=== PATIENT | female | born 1945 | race Caucasian/White ===

== ENCOUNTER 2024-05-21 16:59 | Outpatient (CLI) | payer MEDICARE, SELFPAY ==
--- NOTE | ~2024-05-21 | XR_ITS ---
CHEST RADIOGRAPH, PA AND LATERAL CLINICAL HISTORY: Cough . COMPARISON: None TECHNIQUE: PA and lateral views of the chest. FINDINGS The cardiomediastinal silhouette is unremarkable. The lungs are clear. Visualized osseous structures and soft tissues are unremarkable. IMPRESSION: No focal infiltrate or effusion. Reviewed, dictated and finalized at location A. ER INSTALLATION MECHANIC
--- OUTSIDE RECORDS SUMMARY | 2024-05-21 17:03 | XMS_ITS | Referral Summary ---
Author Organization [facility] Address [address] [place] [address] Care Team Providers Care Text Transcriber Name Role Phone Unavailable Primary Care Provider Unavailabl e Source Comments [facility],non-owned Affiliates and Associated Physician Practices is amultiple site organization consisting of ambulatory clinics and hospital sitesin [place], [place], [place] and [place]. This disclosure is being madepursuant to the Care Everywhere program and may not contain all information available regarding this patient. Last updated 18.[facility] Allergies No known active allergies Social History Tobacco Use Types Packs/Day Years Used Date Smoking Tobacco: Never Assessed Sex and Gender Information Value Date Recorded Sex Assigned at Not on file Gender Identity Not on file Sexual Orientation Not on file Plan of Treatment Not on file
--- OUTSIDE RECORDS SUMMARY | 2024-05-21 17:03 | XMS_ITS | Referral Summary ---
Author Organization [facility] Address [facility] [place] [address] Care Team Providers Care Instructional Systems Specialist Name Role Phone Juanpablo Boyd MD Primary Care Provider Allergies Active Allergy Reactions Criticality Noted Date Comments Penicillins Rash Medium 02/27/2022 Medications PARoxetine (PAXIL) 20 mg tablet 01/03/2022 Active omeprazole (PriLOSEC) 40 mg capsule 12/07/2021 Active calcium carbonate-vitam in D3 (CALTRATE 600 + D) 1500 mg (600 mg elemental) -400 units per tablet every 12 hours Active biotin 10,000 mcg capsule biotin 10,000 mcg capsule Take by oral route. Active estradioL (ESTRACE) 1 mg tablet Estrace 1 mg tablet Take 1 tablet every day by oral route. 05/18/2013 Active oxyBUTYnin XL (DITROPAN-XL) 10 mg 24 hr tablet Take 1 tablet (10 mg total) by mouth daily 12/27/2022 Active Active Problems Problem Noted Date Diagnosed Date Abnormal mammogram 02/27/2022 Social History Tobacco Use Types Packs/Day Years Used Date Smoking Tobacco: Never Smokeless Tobacco: Never Tobacco Cessation:Counseling Given: Not Answered Personal Safety Answer Date Recorded Getting School Help Needed Not on file 06/21 Comments Unknown Sex and Gender Information Value Date Recorded Sex Assigned at Not on file Legal Sex Female 2:56 PM CDT Gender Identity Not on file Sexual Orientation Not on file Last Filed Vital Signs Vital Sign Reading Time Taken Comments Blood Pressure - - Pulse - - Temperature - - Respiratory Rate - - Oxygen Saturation - - Inhaled Oxygen Concentration - - Weight 77.6 kg (171 lb 1.2 oz) 03/07/2023 8:22 A M HAND UPPER AND BOTTOM LACER Height 170.2 cm (5' 7.01 ) 03/07/2023 8:22 AM CS T Body Mass Index 26.79 03/07/2023 8:22 AM HAND UPPER AND BOTTOM LACER Plan of Treatment Not on file Procedures Procedure Name Priority Date/Time Associated Diagnosis Comments SCREENING MAMMOGRAM BILATERAL W DAVY Schedule Routine, Read Routine (OP Routine) 03/07/2023 8:58 AM HAND UPPER AND BOTTOM LACER Mass of upper inner quadrant of left breast Abnormal mammogram Granulomatous mastitis, left breast from Last 3 Months or Most Recently Relevant to Health Maintenance Results * Screening Mammogram Bilateral W Davy (03/07/2023 8:58 AM HAND UPPER AND BOTTOM LACER) Anatomical Region Laterality Modality Breast Bilateral Mammography Narrative 03/10/2023 9:40 AM HAND UPPER AND BOTTOM LACER Mammogram Technique: Bilateral Digital Breast Tomosynthesis, Bilateral C-view 2D Screening mammogram. ??Views obtained: ??bilateral craniocaudal and bilateral mediolateral oblique. ??Computer Aided Detection was performed. Mammogram Findings: The present examination has been compared to prior imaging studies performed at [facility] on 02/27/2022 and 09/27/2022. The breasts are extremely dense, which lowers the sensitivity of mammography. There are calcifications in both breasts. Impression: Calcifications in both breasts are benign. Annual screening mammography is recommended. OVERALL FINAL ASSESSMENT: BI-RADS CATEGORY 2: ??Benign. Procedure Note Namrata Pat MD - 03/10/2023 Mammogram Technique: Bilateral Digital Breast Tomosynthesis, Bilateral C-view 2D Screening mammogram. Views obtained: bilateral craniocaudal and bilateral mediolateral oblique. Computer Aided Detection was performed. Mammogram Findings: The present examination has been compared to prior imaging studies performed at [facility] on 02/27/2022 and 09/27/2022. The breasts are extremely dense, which lowers the sensitivity of mammography. There are calcifications in both breasts. Impression: Calcifications in both breasts are benign. Annual screening mammography is recommended. OVERALL FINAL ASSESSMENT: BI-RADS CATEGORY 2: Benign. Vicky Naralouis Solano ICE GUARD INSPECTOR IMG MAMMO PROCEDURES Final Result from Last 3 Months or Most Recently Relevant to Health Maintenance [place] [address] MED[employer]ARE SOLUT[employer] Care Teams Instructional Systems Specialist Relationship Specialty Start Date End Date Juanpablo Boyd MD [address] [facility] [address] [place] [address] PCP - General Internal Medicine 01/03/22
--- OUTSIDE RECORDS SUMMARY | 2024-05-21 17:03 | XMS_ITS | Clinical Summary ---
Author Organization [facility] Address [address] [place] [address] Care Team Providers Care Crutcher Helper Name Role Phone Unavailable Primary Care Provider Unavailabl e Source Comments [facility],non-owned Affiliates and Associated Physician Practices is amultiple site organization consisting of ambulatory clinics and hospital sitesin [place], [place], [place] and [place]. This disclosure is being madepursuant to the Care Everywhere program and may not contain all information available regarding this patient. Last updated 18.[facility] [email or web address] Allergies No known active allergies Social History Tobacco Use Types Packs/Day Years Used Date Smoking Tobacco: Never Assessed Sex and Gender Information Value Date Recorded Sex Assigned at Not on file Gender Identity Not on file Sexual Orientation Not on file Plan of Treatment Health Maintenance Due Date Last Done Comments BONE DENSITY TESTING 1945 HEPATITIS C SCREENING 02/12/1965 DTAP/TDAP/TD VACCINES (1 - Tdap) 1966 PNEUMOCOCCAL VACCINE 50+ (1 of 1 - PCV) 1997 ZOSTER VACCINE (1 of 2) 1997 Respiratory Syncytial Virus (RSV) Vaccine Pt: or over 60 yrs (1 - 1-dose 75+ series) 2022 COVID-19 VACCINE ( - 2023-2 5 season) 2023 03/12/2021, 07/10/2020, 06/08/2020 INFLUENZA VACCINE (#1) 2023 DEPRESSION SCREENING 04/21/2024 HEPATITIS B VACCINE Aged Out No longe r eligible based on patient's age to complete this topic HIB VACCINE Aged Out No longer eligi ble based on patient's age to complete this topic HPV VACCINE Aged Out No longer eligi ble based on patient's age to complete this topic MENINGOCOCCAL (Group B) VACCINE Aged Out No longer eligible b ased on patient's age to complete this topic MENINGOCOCCAL VACCINE Aged Out No rupal frances eligible based on patient's age to complete this topic
--- OUTSIDE RECORDS SUMMARY | 2024-05-21 17:03 | XMS_ITS | Encounter Summary ---
Author Organization [facility] Healthcare Address [address] [place] [address] Care Team Providers Care Screw Machine Setter Name Role Phone Unavailable Primary Care Provider Unavailabl e Reason for Visit * Diagnostic Imaging (Routine) - Closed Specialty Diagnoses / Procedures Referred By Contac t Referred To Contact Procedures Breast Imaging Screening Outside Reference Aft, Gaviota Kennedy MD PhD [address] [place] [id number] Phone: tel: fax: Referral ID Status Reason Start Date Expiration Date Visits Re quested Visits Authorized [id number] Closed 01/29/2022 02/28/2023 1 1 Encounter Details Date Type Department Care Team (Late st Contact Info) Description 02/23/2019 Hospital Encounter [facility] [address] [place] [address] [phone] Social History Tobacco Use Types Packs/Day Years Used Date Smoking Tobacco: Never Smokeless Tobacco: Never Personal Safety Answer Date Recorded Getting School Help Needed Not on file 06/21 Comments Unknown Sex and Gender Information Value Date Recorded Sex Assigned at Not on file Legal Sex Female 2:56 PM CDT Gender Identity Not on file Sexual Orientation Not on file documented as of this encounter Plan of Treatment Not on file documented as of this encounter Procedures Procedure Name Priority Date/Time Associated Diagnosis Comments BREAST IMAGING MG SCREENING OUTSIDE REFERENCE Routine 02/23/2019 12:00 AM AURICULOTHERAPIST documented in this encounter Results * Breast Imaging Screening Outside Reference (02/23/2019 12:00 AM AURICULOTHERAPIST) Impressions [facility]MO[facility] - 01/29/2022 10:10 AM CDT These images are for Reference purposes only and have not been reviewed by [facility] Radiology. ??There will be no report generated by a [facility] Radiologist. Narrative [facility] - 01/29/2022 10:10 AM CDT EXAMINATION: ??Images For Reference Purposes Only us Gaviota Wilson MD PhD IMG MAMMO PROCEDURES Final Result [facility] documented in this encounter Visit Diagnoses Not on filedocumented in this encounter
--- OUTSIDE RECORDS SUMMARY | 2024-05-21 17:03 | XMS_ITS | Patient Health Summary ---
Author Organization [facility] Address [address] [place] [address] Care Team Providers Care Greeter Name Role Phone Unavailable Primary Care Provider Unavailabl e Note from [facility],non-owned Affiliates and Associated Physician Practices is amultiple site organization consisting of ambulatory clinics and hospital sitesin [place], [place], [place] and [place]. This disclosure is being madepursuant to the Care Everywhere program and may not contain all information available regarding this patient. Last updated 18.[facility] Allergies No known active allergies Social History Tobacco Use Types Packs/Day Years Used Date Smoking Tobacco: Never Assessed Sex and Gender Information Value Date Recorded Sex Assigned at Not on file Gender Identity Not on file Sexual Orientation Not on file
--- OUTSIDE RECORDS SUMMARY | 2024-05-21 17:03 | XMS_ITS | Encounter Summary ---
Author Organization [facility] Healthcare Address [address] [place] [address] Care Team Providers Care Director Enterprise Sales Name Role Phone Unavailable Primary Care Provider Unavailabl e Reason for Visit * Diagnostic Imaging (Routine) - Closed Specialty Diagnoses / Procedures Referred By Contac t Referred To Contact Procedures Breast Imaging US Outside Reference Aft, Gaviota Kennedy [place] PhD [address] [place] [id number] Phone: tel: fax: Referral ID Status Reason Start Date Expiration Date Visits Re quested Visits Authorized [id number] Closed 01/29/2022 02/28/2023 1 1 Encounter Details Date Type Department Care Team (Late st Contact Info) Description 03/15/2019 Hospital Encounter [facility] Radiology [facility] [address] [place] [address] [phone] Social History Tobacco Use Types Packs/Day Years [...] Priority Date/Time Associated Diagnosis Comments BREAST IMAGING US OUTSIDE REFERENCE Routine 03/15/2019 12:00 AM FACTORY SUPERVISOR documented in this encounter Results * Breast Imaging US Outside Reference (03/15/2019 12:00 AM FACTORY SUPERVISOR) Impressions [facility] - 01/29/2022 10:04 AM CDT These images are for Reference purposes only and have not been reviewed by [facility] Radiology. ??There will be no report generated by a [facility] Radiologist. Narrative [facility] - 01/29/2022 10:04 AM CDT EXAMINATION: ??Images For Reference Purposes Only us Gaviota Wilson MD PhD IMG MAMMO PROCEDURES Final Result [facility] documented in this encounter Visit Diagnoses Not on filedocumented in this encounter
--- OUTSIDE RECORDS SUMMARY | 2024-05-21 17:04 | XMS_ITS | Clinical Summary ---
Author Organization [facility] Address [address] [place] [id number] Care Team Providers Care Machine Specialist Name Role Phone Juanpablo Boyd MD [...] Noted Date Diagnosed Date Abnormal mammogram 02/27/2022 Family History Medical History Relation Name Comments Bladder Cancer Brother Relation Name Status Comments Brother Social History Tobacco Use Types Packs/Day Years [...] on file Sexual Orientation Not on file Obstetrics History Last Filed Vital Signs Vital Sign Reading Time Taken Comments Blood Pressure - - Pulse - - Temperature - - Respiratory Rate - - Oxygen Saturation - - Inhaled Oxygen Concentration - - Weight 77.6 kg (171 lb 1.2 oz) 03/07/2023 8:22 A M LOCOMOTIVE LUBRICATING SYSTEMS CLERK Height 170.2 cm (5' 7.01 ) 03/07/2023 8:22 AM CS T Body Mass Index 26.79 03/07/2023 8:22 AM LOCOMOTIVE LUBRICATING SYSTEMS CLERK Plan of Treatment Health Maintenance Due Date Last Done Comments Depression Screening 1945 Fall Risk Assessment 1945 Hepatitis C Screening 1945 Osteoporosis Screening-Bone Density Scan 1945 DTaP/Tdap/Td Vaccine (1 - Tdap) 1958 Hepatitis B Screening 1965 Zoster Vaccine (1 of 2) 1997 Pneumococcal vaccine 65+ (1 of 1 - PCV) 02/18/2012 Well Visit 65+ 02/18/2012 Covid-19 Vaccine (5 - 2023-2 5 season) 2023 01/23/2022, 03/12/2021, 07/10/2020, Additional history exists Influenza Vaccine (#1) 2023 , 01/27/2019, 01/19/2015 Breast Cancer Screening-Mammogram Discontinued 023, 02/27/2022 Procedures Procedure Name Priority Date/Time Associated Diagnosis Comments SCREENING MAMMOGRAM BILATERAL W DAVY Schedule Routine, Read Routine (OP Routine) 03/07/2023 8:58 AM LOCOMOTIVE LUBRICATING SYSTEMS CLERK Mass of upper inner quadrant of left breast Abnormal mammogram Granulomatous mastitis, left breast from Last 3 Months or Most Recently Relevant to Health Maintenance Results * Screening Mammogram Bilateral W Davy (03/07/2023 8:58 AM LOCOMOTIVE LUBRICATING SYSTEMS CLERK) Anatomical Region Laterality Modality Breast Bilateral Mammography Narrative 03/10/2023 9:40 AM LOCOMOTIVE LUBRICATING SYSTEMS CLERK Mammogram Technique: Bilateral Digital Breast Tomosynthesis, Bilateral C-view 2D Screening mammogram. ??Views obtained: ??bilateral craniocaudal and bilateral mediolateral oblique. ??Computer Aided Detection was performed. Mammogram Findings: The present examination has been compared to prior imaging studies performed at [facility] on 02/27/2022 and 09/27/2022. The breasts are [...] compared to prior imaging studies performed at [facility] on 02/27/2022 and 09/27/2022. The breasts are extremely dense, which lowers the sensitivity of mammography. There are calcifications in both breasts. Impression: Calcifications in both breasts are benign. Annual screening mammography is recommended. OVERALL FINAL ASSESSMENT: BI-RADS CATEGORY 2: Benign. Vicky Solano NP IMG MAMMO PROCEDURES Final Result from Last 3 Months or Most Recently Relevant to Health Maintenance Insurance MEDICARE SOLUTIONS Care Teams Machine Specialist Relationship Specialty Start Date End Date Juanpablo Boyd MD [address] [address] PCP - General Internal Medicine 01/03/22
--- OUTSIDE RECORDS SUMMARY | 2024-05-21 17:04 | XMS_ITS | Data Portability ---
Author Organization BAL Arlette HAMMOND Address [address] [place] [address] Care Team Providers Care Director Regulatory Agency Name Role Phone DAXAKATIE JONES Online Retailer Assessment Encounter Date Assessment Date Assessment LastModified by Organization Details LastModified Time 07/24/2021 07/24/2021 Stormy GRUBER Not available 07/24/2021 12:02:35 Plan of Treatment Reminders Order Date Submit Date Provider Last Modified By Organization Details Last Modified Time Details Appointments None recorded . Lab culture, urine 2018 019 MELISSA LABREJIRP, [address], [address], [place], [address], 9 20:07:52 urinalys is, dipstick 2018 019 In-Office Order, Internal Use Only DO Not Attach Compendium DO Not Attach Compendium, Do Not Delete/merge, [id number] 13:13:07 patholog y study 2021 022 MELISSA LABREJIRP, [address], [address], [place], [address], 20:08:35 vaginal pathogen s panel, SLAVA+prob e, vaginal fluid 2023 024 MELISSA LIANGRP, [address], [address], [place], [address], 4 03:11:51 Referral None recorded . Procedures None recorded . Surgeries None recorded . Imaging MAMMO, screenin g, bilatera l 2018 019 [facility] ([facility]), [address], [place], [address], 9 17:04:36 MAMMO, screenin g, digital, bilatera l - pt has been seen in the last 2 years by [facility] for mammogra ms 2023 024 [facility], [address], [place] [address], [place], [address], 5 12:58:59 Medication Orders Macrobid 100 mg capsule 2018 019 [facility], [address] [place], [address], 4 09:13:53 fluconaz ole 150 mg tablet 2018 019 [facility], [address] [place], [address], 4 09:13:38 nystatin 100,000 unit/gra m topical cream 2018 019 [facility], [address] [place], [address], 4 09:13:57 Calcium with Vitamin D 600 mg-10 mcg (400 unit) tablet 2018 019 [facility], [address] [place], [address], 4 09:13:18 Diflucan 150 mg tablet 2021 022 [facility] #[id number], [address], [place], [address], 4 09:13:38 nystatin 100,000 unit/gra m topical cream 2021 022 [id number], [address], [place], [address], 4 09:13:57 vaginal lubrican t inserts 2023 024 [id number], [address], [place], [address], 4 10:53:59 fluconaz ole 150 mg tablet 2023 024 [id number], [address], [place], [address], 10:53:56 Patient TargetsNo targets recorded. Patient Instructions Encounter Date Encounter Id Patient Instructions Last Modified By Organization Details Last Modified Time 01/05/2019 [id number] lichen sclerosus : care instructions Not available 01/05/2019 16:11:23 04/06/2019 [id number] atrophic vaginitis: care instructions Not available 04/06/2019 12:56:44 lichen sclerosus : care instructions Not available 04/06/2019 12:54:16 candidiasis: car e instructions Not available 04/06/2019 12:52:44 Urge Incontinence: Care Instructions Not available 04/06/2019 12:52:44 02/26/2024 [id number] On the date of this encounter, I was immediately available to assist the resident/fellow in the care of the patient, and have reviewed and agree with the resident? s findings and plan of care. ~MD Melo [email or web address] Not available 02/26/2024 09:43:15 Reason for Referral None Reported. Results Created Date Observation Date Name Description Value Unit Range Abnormal Flag Note LastModifiedBy Organization Detail LastModifiedTime 01/06/2001/07/2019 cultu re, urine urine culture, routine FINAL REPORT abnormal Not Available [facility] ([facility]) [address], [place], [place], [address], 01/07/2019 20:07:52 01/06/2001/07/2019 cultu re, urine result 1 KLEBSI ZEB PNEUMO NIAE abnormal Great er than 100,0 00 colon y formi ng units per mL Cefaz nataliya <=4 ug/mL Cefaz nataliya with an JOSLYN <=16 predi cts susce ptibi lity to the oral agent s cefac shelley, cefdi ricardo, cefpo doxim e, cefpr ozil, cefur oxime , cepha lexin , and lorac arbef when used for thera py of uncom plica dov urina ry tract infec tions due to E. coli, Klebs iella pneum oniae , and Prote us mirab ilis. Not Available [facility] ([facility]) [address], [place], [place], [address], 01/07/2019 20:07:52 01/06/2001/07/2019 cultu re, urine antimicrobia l susceptibili ty COMMEN T S = Susce ptibl e; I = Inter media te; R = Resis tant P = Posit neema; N = Negat neema MICS are expre ssed in micro grams per mL Antib iotic RSLT# 1 RSLT# 2 RSLT# 3 RSLT# 4 Amoxi cilli n/Cla vulan ic Acid S Ampic illin R Cefep carleen S Ceftr iaxon e S Cefur oxime S Cipro floxa tavo S Ertap enem S Genta micin S Imipe nem S Levof loxac in S Merop enem S Nitro furan toin S Piper acill in/Ta zobac pabon S Tetra cycli ne R Tobra mycin S Trime thopr im/Muñoz lfa S Not Available [facility] ([facility]) [address], [place], [place], [address], 01/07/2019 20:07:52 04/06/2004/06/2019 urina lysis , dipst ick Leukocytes Small Not Available In-Offi ce Order Internal Use Only DO Not Attach Compendium DO Not Attach Compendium, Do Not Delete/merge, [id number] 04/06/2019 10:11:15 04/06/20 19 04/06/2019 urina lysis , dipst ick Nitrite negati ve Not Available In-Office Order Internal Use Only DO Not Attach Compendium DO Not Attach Compendium, Do Not Delete/merge, [id number] 04/06/2019 10:11:15 04/06/20 19 04/06/2019 urina lysis , dipst ick Urobilinogen .2 Not Available In-Of fice Order Internal Use Only DO Not Attach Compendium DO Not Attach Compendium, Do Not Delete/merge, [id number] 04/06/2019 10:11:15 04/06/20 19 04/06/2019 urina lysis , dipst ick Protein Negati ve Not Available In-Office Order Internal Use Only DO Not Attach Compendium DO Not Attach Compendium, Do Not Delete/merge, [id number] 04/06/2019 10:11:15 04/06/20 19 04/06/2019 urina lysis , dipst ick pH 5.5 Not Available In-Office Order Internal Use Only DO Not Attach Compendium DO Not Attach Compendium, Do Not Delete/merge, [id number] 04/06/2019 10:11:15 04/06/20 19 04/06/2019 urina lysis , dipst ick Blood Non-He molyze d: Trace Not Available In-Office Order Internal Use Only DO Not Attach Compendium DO Not Attach Compendium, Do Not Delete/merge, [id number] 04/06/2019 10:11:15 04/06/20 19 04/06/2019 urina lysis , dipst ick Specific [place] 1.030 Not Available In-Off ice Order Internal Use Only DO Not Attach Compendium DO Not Attach Compendium, Do Not Delete/merge, [id number] 04/06/2019 10:11:15 04/06/20 19 04/06/2019 urina lysis , dipst ick Ketone Negati ve Not Available In-Office Order Internal Use Only DO Not Attach Compendium DO Not Attach Compendium, Do Not Delete/merge, [id number] 04/06/2019 10:11:15 04/06/20 19 04/06/2019 urina lysis , dipst ick Bilirubin Negati ve Not Available In-Office Order Internal Use Only DO Not Attach Compendium DO Not Attach Compendium, Do Not Delete/merge, [id number] 04/06/2019 10:11:15 04/06/20 19 04/06/2019 urina lysis , dipst ick Glucose Negati ve Not Available In-Office Order Internal Use Only DO Not Attach Compendium DO Not Attach Compendium, Do Not Delete/merge, [id number] 04/06/2019 10:11:15 08/25/19 22 08/29/2021 PATHO LOGY IVETT crowell Mater ial submi tted: . vulva - VULVA R BIOPS Y Not Available [facility] ([facility]) [address] [place], [address], 08/29/2021 20:08:35 08/25/19 22 08/29/2021 PATHO LOGY IVETT crowell Diagn osis: VULVA R BIOPS Y: CHRON IC VULVI TIS WITH ULCER , NONSP ECIFI C. NO FUNGA L ORGAN ISMS ARE SEEN IN A PAS STAIN FOR FUNGI (CONT ROLS STAIN ED APPRO RAMY WILDER). JDK 08/29 1811 Local Not Available [facility] ([facility]) [address] [place], [address], 08/29/2021 20:08:35 08/25/19 22 08/29/2021 PATHO LOGY REPOR T . Commen t Elect carly walls delroy d: . Gorge montano MD, Patho logis t Not Available [facility] ([facility]) [address], [place], [place], [address], 08/29/2021 20:08:35 08/25/19 22 08/29/2021 PATHO LOGY REPOR T . Commen t Gross descr iptio n: . 1 Conta iner, forma sukh-f illed , label ed with patie nt ident ifica tion. VULVA R BIOPS Y: RECEI NANDO ARE 2 FRAGM ENTS OF ROSAS SOFT TISSU E MEASU RING 0.2 X 0.1 X 0.1 CM AND 0.3 X 0.2 X 0.1 CM. IT IS FILTE RED AND SUBMI TTED IN TOTO IN CASSE TTE A1. MCL/M CL 08/27 0604 Local Not Available [facility] ([facility]) [address], [place], [place], [address], 08/29/2021 20:08:35 08/25/19 22 08/29/2021 PATHO LOGY REPOR T . Commen t Patho logis t provi ded ICD-1 0: N76.3 Not Available [facility] ([facility]) [address], [place], [place], [address], 08/29/2021 20:08:35 08/25/19 22 08/29/2021 PATHO LOGY REPOR T . Commen t CPT . 03391 1, 24002 1 Not Available [facility] ([facility]) [address], [place], [place], [address], 08/29/2021 20:08:35 02/26/20 24 02/27/2024 NUSWA B VAGIN ITIS PLUS (VG+) atopobium vaginae LOW - 0 score Not Available [facility] ([facility]) [address], [place], [place], [address], 02/28/2024 03:11:50 02/26/20 24 02/27/2024 NUSWA B VAGIN ITIS PLUS (VG+) bvab 2 LOW - 0 score Not Available [facility] ([facility]) [address], [place], [place], [address], 02/28/2024 03:11:50 02/26/20 24 02/27/2024 NUSWA B VAGIN ITIS PLUS (VG+) megasphaera 1 LOW - 0 score Calcu late total score by celina petit the 3 indiv idual bacte rial vagin osis (BV) marke r score s toget her. Total score is inter prete d as follo ws: Total score 0-1: Indic ates the absen ce of BV. Total score 2: Indet ermin ate for BV. Addit ional clini efra data shoul d be evalu ated to estab jonathan a diagn osis. Total score 3-6: Indic ates the prese nce of BV. Not Available [facility] ([facility]) [address], [place], [place], [address], 02/28/2024 03:11:50 02/26/20 24 02/27/2024 NUSWA B VAGIN ITIS PLUS (VG+) arleth albicans, SLAVA NEGATI VE negati ve Not Available [facility] ([facility]) [address] [place], [address], 02/28/2024 03:11:50 02/26/20 24 02/27/2024 NUA B VAGIN ITIS PLUS (VG+) arleth glabrata, SLAVA NEGATI VE negati ve Not Available [facility] ([facility]) [address] [place], [address], 02/28/2024 03:11:50 02/26/20 24 02/27/2024 NUSWA B VAGIN ITIS PLUS (VG+) trich vag by SLAVA NEGATI VE negati ve Not Available [facility] ([facility]) [address], [place], [place], [address], 02/28/2024 03:11:50 02/26/20 24 02/27/2024 NUSWA B VAGIN ITIS PLUS (VG+) chlamydia trachomatis, SLAVA NEGATI VE negati ve Not Available [facility] ([facility]) [address], [place], [place], [address], 02/28/2024 03:11:50 02/26/20 24 02/27/2024 NUSWA B VAGIN ITIS PLUS (VG+) neisseria gonorrhoeae, SLAVA NEGATI VE negati ve Not Available [facility] ([facility]) [address], [place], [place], [address], 02/28/2024 03:11:50 03/08/20 19 02/23/2019 MAMMO , screlouis beang, bilat eral No observ ation record ed. [address] (Imaging) [address] [place], [address], 04/06/2019 10:25:56 03/15/20 19 03/15/2019 US, melba crowell, bilat eral No observ ation record ed. [address] (Imaging) [address] [place], [address], 04/06/2019 10:25:56 12/15/19 21 12/14/2020 MAMMO , screlouis beang, bilat eral No observ ation record ed. [address] [place], [address], 07/24/2021 09:50:25 05/14/19 25 05/14/2024 MAMMO , scree jason, digit al, bilat eral No observ ation record ed. MELIS[facility] [address], [place], [address], 05/14/2024 17:35:37 Result Notes Documentation Provider Name and Address Organization Details Recorded Time Mammo, Screening, Digital, Bilateral : Mammogram Mammo, Screening, Digital, Bilateral : Normal FRANKIE YOO MD Attn: Accounting,[address] [facility], [place], [address], [facility] 05/14/2024 13:18:52 Problems Name Problem SNOMED Code Status Onset Date Resolution Date Notes Provider Name and Address Organization Details Recorded Time Genital lichen sclerosus 860688406 Active 019 Not Available [facility] 2 00:02:34 Atrophic vaginitis 10318593 Active Not Available [facility] 2 00:02:34 Problem Notes None recorded. Procedures Surgical History Date Name Laterality Status Provider Name and Address Organization Details Recorded Time 08/25/19 22 Vulvar Biopsy completed JELLY WHITTINGTON Attn: Accounting,[address] [facility], [place], [address], [facility] 08/31/2021 15:17:26 12/15/19 21 Date of Last Mammogram completed Ela Bonilla [facility] 02/26/2024 09:14:25 Total hysterectomy completed Alex Lr MA [facility] 01/05/2019 15:13:22 excision of bunion completed Alex Lr MA [facility] 01/05/2019 15:13:29 Appendectomy completed Alex Lr MA [facility] 01/05/2019 15:13:35 surgical procedure on orbit completed Alex Lr MA [facility] 01/05/2019 15:13:49 Unlisted px accessory sinus completed Alex Lr MA [facility] 01/05/2019 15:14:09 Imaging Results Imaging Date Name Status LastModified by [facility] Details LastModified Time 02/23/2019 MAMMO, screening, bilateral completed [email or web address] (Imaging) [address] [place], [address], 04/06/2019 10:25:56 03/15/2019 US, breast, bilateral completed [email or web address] (Imaging) [address] [place], [address], 04/06/2019 10:25:56 12/14/2020 MAMMO, screening, bilateral completed [facility] [address] [place], [address], 07/24/2021 09:50:25 05/14/2024 MAMMO, screening, digital, bilateral completed [facility] [address], [place], [address], 05/14/2024 17:35:37 Procedure Notes None recorded. Medical Equipment None Reported. Allergies No known drug allergies Medications Name Sig Start Date Stop Date Status Note LastModified by Organization Details LastModified Time doxycycline hyclate 100 mg capsule TAKE 1 CAPSULE BY MOUTH TWICE A DAY active Not Available Not Available No t Available oxybutynin chloride ER 10 mg tablet,exte nded release 24 hr TAKE 1 TABLET BY MOUTH EVERY DAY active Not Available Not Available No t Available azithromyci n 250 mg tablet TAKE 2 TABLETS BY MOUTH TODAY, THEN TAKE 1 TABLET DAILY FOR 4 DAYS 07/24 completed Not Available Not Available Not Available fluconazole 150 mg tablet TAKE 1 TABLET BY MOUTH FOR 1 DAY active Not Available Not Available No t Available meclizine 12.5 mg tablet TAKE 1 TABLET 3 TIMES A DAY BY ORAL ROUTE. active Not Available Not Available No t Available sulfamethox azole 800 mg-trimetho prim 160 mg tablet TAKE 1 TABLET BY MOUTH TWICE A DAY active Not Available Not Available No t Available omeprazole 40 mg capsule,del ayed release active Not Available Not Available Not Available vaginal lubricant inserts Insert 1 applicato r intravagi bhavani every third day 2023 active Not Available Not Available Not Avai lable baclofen 10 mg tablet TAKE 1 TABLET BY MOUTH FOUR TIMES A DAY active Not Available Not Available No t Available paroxetine 20 mg tablet active Not Available Not Available Not Available biotin 10,000 mcg capsule Take by oral route. 02/25 completed Not Available Not Available Not Available nystatin 100,000 unit/gram topical cream APPLY TO AFFECTED AREA TWICE A DAY 02/25 completed Not Available Not Available Not Available clobetasol 0.05 % topical ointment 08/01 completed Not Available Not Available Not Available levofloxaci n 500 mg tablet TAKE 1 TABLET BY MOUTH EVERY DAY active Not Available Not Available No t Available methylpredn isolone 4 mg tablets in a dose pack TAKE 6 TABLETS ON DAY 1 DIRECTED ON PACKAGE AND DECREASE BY 1 TAB EACH DAY FOR A TOTAL OF 6 DAYS 02/25 completed Not Available Not Available Not Available oxybutynin chloride 5 mg tablet 07/24 completed Not Available Not Available Not Available fluticasone propionate 50 mcg/actuati on nasal spray,suspe nsion active Not Available Not Available Not Available clotrimazol e 1 % topical cream APPLY 1 APPLICATI ON TO THE AFFECTED AREA(S) TWICE DAILY IN THE MORNING AND EVENING 02/25 completed Not Available Not Available Not Available Estrace 0.01% (0.1 mg/gram) vaginal cream Insert 1 g twice a week by vaginal route. 01/05 completed Not Available Not Available Not Available Premarin 0.625 mg/gram vaginal cream 07/24 completed Not Available Not Available Not Available nitrofurant oin monohydrate /macrocryst als 100 mg capsule TAKE 1 CAPSULE BY MOUTH EVERY 12 HOURS 02/25 completed Not Available Not Available Not Available peg 3350-electr olytes 236 gram-22.74 gram-6.74 gram-5.86 gram solution TAKE DIRECTED PER COLON PREP INSTRUCTI ONS EVENING PRIOR TO COLONOSCO PY 07/24 completed Not Available Not Available Not Available Calcium with Vitamin D 600 mg-10 mcg (400 unit) tablet Take 1 tablet twice a day by oral route. 02/25 completed Not Available Not Available Not Available Fluad 65yr up(PF)45 mcg(15 mcgx3)/0.5 mL intramuscul ar syringe 02/25 completed Not Available Not Available Not Available Vitals Date Recorded Body height Body mass index (BMI) Body weight Body temperature Heart rate Oxygen saturation Oxygen saturation in Arterial blood by Pulse oximetry Systolic blood pressure Diastolic blood pressure Provider Name and Address Organization Details Last Updated DateTime 9 170.18 cm 27.3 kg/m2 72035.0 7 g 97.9 [degF] 69 /min 96 % 96 % 104 mm[Hg] 72 mm[Hg] Alex Lr MA [facility] 9 15:05:58 Date Recorded Body height Body mass index (BMI) Body weight Heart rate Body temperature Oxygen saturation Oxygen saturation in Arterial blood by Pulse oximetry Systolic blood pressure Diastolic blood pressure Provider Name and Address Organization Details Last Updated DateTime 9 170.18 cm 26.9 kg/m2 76723.8 9 g 77 /min 97.4 [degF] 97 % 97 % 146 mm[Hg] 72 mm[Hg] Rajni Kan MA [facility] 9 10:14:34 Date Recorded Body height Body mass index (BMI) Body weight Systolic blood pressure Diastolic blood pressure Provider Name and Address Organization Details Last Updated DateTime 07/24/2021 170.18 cm 26.9 kg/m2 30675.89 g 120 mm[Hg] 74 mm[Hg] Rajni Kan MA [facility] 2 09:10:45 Date Recorded Body height Body mass index (BMI) Body weight Systolic blood pressure Diastolic blood pressure Provider Name and Address Organization Details Last Updated DateTime 08/24/2021 170.18 cm 27.3 kg/m2 76165.07 g 120 mm[Hg] 78 mm[Hg] Anna Marie Alan MA [facility] 2 09:45:06 Date Recorded Body height Body mass index (BMI) Body weight Oxygen saturation Oxygen saturation in Arterial blood by Pulse oximetry Heart rate Systolic blood pressure Diastolic blood pressure Provider Name and Address Organization Details Last Updated DateTime 4 170.18 cm 25.5 kg/m2 96976.5 6 g 100 % 100 % 79 /min 122 mm[Hg] 74 mm[Hg] Ela Bonilla MA [facility] 4 09:16:48 Social History Question Answer Notes LastModified by Organizat ion Details LastModified Time Tobacco Smoking Status Never Smoker Alex Lr [facility] 01/05/2019 15:11:28 Do You Have An Advance Directive? No [facility] Information not available 01/05/2019 What Is Your Level Of Alcohol Consumption? None [facility] Information not available 01/05/2019 Is Blood Transfusion Acceptable In An Emergency? Yes Information not available 01/05/2019 What Is Your Level Of Caffeine Consumption? Moderate Information not available 01/05/2019 How Much Tobacco Do You Chew? None Information not available 01/05/2019 Are You Currently Employed? Yes Information not available 01/05/2019 What Type Of Diet Are You Following? REGULAR Information not available 01/05/2019 Which Illicit Or Recreational Drugs Have You Used? Denies Information not available 01/05/2019 Do You Or Have You Ever Used E-cigarettes Or Vape? 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 With Others Information not available 01/05/2019 What Was The Date Of Your Most Recent Tobacco Screening? 02/26/2024 Information not available 02/26/2024 How Many Children Do You Have? 2 Information not available 01/05/2019 Performs Monthly Self-breast Exam? Yes Information not available 01/05/2019 What Is Your Relationship Status? Information not available 01/05/2019 Seat Belts Used Routinely Yes Information not available 01/05/2019 Are You Sexually Active? No Information not available 01/05/2019 Do You Have Smoke And Carbon Monoxide Detectors In Your Home? Yes Information not available 07/24/2021 Do You Or Have You Ever Used Smokeless Tobacco? Never Used Smokeless Tobacco Information not available 01/05/2019 How Much Tobacco Do You Smoke? No Information not available 01/05/2019 General Stress Level Medium Information not available 01/05/2019 Do You Use Any Illicit Or Recreational Drugs? No Information not available 07/24/2021 Do You Use Sunscreen Routinely? Yes Information not available 01/05/2019 Has Tobacco Cessation Counseling Been Provided? Yes Information not available 02/26/2024 On What Date Was Tobacco Cessation Counseling Provided? 02/26/2024 Information not available 02/26/2024 How Many Years Have You Smoked Tobacco? 0 Information not available 01/05/2019 Do You Or Have You Ever Used Any Other Forms Of Tobacco Or Nicotine? No Information not available 02/26/2024 Sex: Unknown Functional Status Question Answer Note LastModified by Organizat ion Details LastModified Time What is your exercise level? Occasional [facility] Information not available 01/05/2019 Mental Status None recorded. Family History Relationship Description Onset Age of this Age Resolved Age Notes LastModified by Organization Details LastModified Time Mother Diabetes mellitus formerly [facility] Not available 01/05 15:10:58 Mother Chronic obstructive pulmonary disease formerly [facility] Not available 01/05 15:11:04 Mother Heart disease formerly [facility] Not available 01/05 15:11:11 Medical History Condition Response Coronary Artery Disease N Other Y High Blood Pressure N Atrial Fibrillation N Kidney or Bladder Problems N Thyroid Problems N GI Problems N Depression N COPD N Blood Clots N Skin Problems N Anemia N Heart Attack ([place]) N Anxiety Disorder N Diabetes N Muscle, Joint, or Bone Problems N Seizures/Epilepsy N Acid Reflux (GERD) N Cancer N Stroke N Asthma N Allergies N High Cholesterol N Hepatitis N Liver Disease N Headaches N Heart Failure N Osteoporosis N Gynecological History Statement/Question Response Menses Monthly N If Post Menopausal, Age at Menopause 37 Age at Menarche 17 Current Control Method Hysterectom y Date of Last Mammogram 12/14/2020 Age at First Child 24 On BCP's at Conception? N Obstetrics History GPAL:G 3 P 3 0 0 3 Type Value Multiple Births 0 Full Term 3 Induced 0 Spontaneous 0 Premature 0 Living 3 Ectopics 0 Total 3 Immunizations Vaccine Type Date Status Note Provider Nam e and Address Organization Details Recorded Time COVID-19, mRNA, LNP-S, PF, 100 mcg/0.5mL dose or 50 mcg/0.25mL dose 06/08/2020 completed ESTRELLA Chavez [place] - [facility] 07/24/2021 09:13:26 COVID-19, mRNA, LNP-S, PF, 100 mcg/0.5mL dose or 50 mcg/0.25mL dose 07/10/2020 completed ESTRELLA Chavez [place] - [facility] 07/24/2021 09:13:56 COVID-19, mRNA, LNP-S, PF, 100 mcg/0.5mL dose or 50 mcg/0.25mL dose 03/12/2021 completed Rajni Kan MA [place], [place] - [facility] 07/24/2021 09:14:34 Past Encounters Encounter ID Performer Location Encounter Start Date Encounter Closed Date Diagnosis/Indication Diagnosis SNOMED-CT Code Diagnosis ICD10 Code Diagnosis Note [id number] JELLY WHITTINGTON ([employer] ADMINISTRATOR) [address] [place] [address] [id number] 01/05/2019 14:46:20 01/06/2019 12:11:04 Genital lichen sclerosus [id number] L90.0 Discontinu e steroid ointment. Wear loose clothing and wash with water and bland soaps. Avoid soaking in hot water. Screening for malignant neoplasm of breast [id number] Z12.31 Gynecologi c examination [id number] Z01.419 Z11.51 Z12.4 Candidal vulvovaginitis 62084689 B37.3 Fairly severe and likely the cause of most of pt's discomfort . Advised pt to d/c other ointments and creams and starting applying nystatin twice daily until swelling and erythemato us rash heal. Keep area clean and dry. Will reassess in 3 months. Acute urin ryley tract infection [id number] N39.0 Advised to increase water intake and avoid sugary drinks. Take abx as prescribed . Will send for culture. Atrophic vaginitis 50641 000 N95.2 Pt reports no difference with use of premarin cream. Ok to discontinu e. [id number] [facility] ([facility] ADMINISTRATOR) [address] [place] [address] [id number] 04/06/2019 09:49:12 04/06/2019 10:45:37 Genital lichen sclerosus [id number] L90.0 Improved. No indication for steroid cream at this time. Wear loose clothing and wash with water and bland soaps. Avoid soaking in hot water. Candidiasis of vulva 108 5006 B37.3 Improving. Continue nystatin cream twice daily. Avoid panty liners. Change underwear after any urine leakage/in continence . Urge incon tinence of urine 45193136 N39.41 On oxybutynin per PCP, not taking regularly due to side effects. Advised pt to discuss discontinu ing/altern atives with PCP. Atrophic vaginitis 87191 000 N95.2 No longer using premarin. 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 Advised pt discontinu e topical Clobetasol as could be making candidal infection worse. Gynecologi c examination [id number] Z01.411 76yo F with h/o hysterecto my and lichen sclerosus presenting with vulvar burning, pruritis, and dryness. Pelvic exam with bilateral labial swelling, maceration , and beefy red patches c/w candidal infection. See below for management .Cervical cancer screening: Pap not indicated todayBreas t cancer screening: Last mammogram 11/2020, wnl. Discussed SBEColonos copy: UTDDiet/ex ercise: Counseled regarding importance of physical activity, healthy diet and appropriat e calcium intake.RTC in 1 month to reassess vulvar symptoms. Atrophic vaginitis 09241 000 N95.2 Pt states she has Premarin at home. Instructed to start Premarin each night x 2 weeks followed by twice weekly maintenanc e. Candidal vulvovaginitis 54828398 B37.3 Fairly severe and likely the cause of most of pt's discomfort . Advised pt to starting applying nystatin twice daily until swelling and erythemato us rash heal. Keep area clean and dry. Avoid prolonged use of panty liners. Will reassess in 1 month. [id number] JELLY WHITTINGTON (COGNOS ADMINISTRATOR) [address] [place] [address] [id number] 0 08/24/2021 09:30:34 09/03/2021 17:40:09 Disorder of vulva 1762309 N90.9 Pt's symptoms and exam findings appear to be persistent since last visit on 07/24/21 after applicatio n of clotrimazo le + Premarin and stopping the clobetasol . I recommende d biopsy for definitive diagnosis and to help guide treatment. I discussed the case with Dr Fallon who agrees with plan for biopsy. Pt is comfortabl e with this plan and the procedure was performed successful ly as described in the procedural note. Biopsies sent to pathology. Will contact pt when results return. [id number] MD Arielle Morris (COGNOS ADMINISTRATOR) [address] [place] [address] [phone] 02/26/2024 08:58:52 03/23/2024 14:02:35 Screening mammography [id number] Z12.31 Pruritus of vagina 25619 003 L29.3 She has a long stating history of pelvic irritation and dyspareuni a over the past 10 to 15 years. She was initially managed as genitourin ryley symptoms of menopause with estrogen cream in 2014. She did not note any improvemen t. Over the years she has had flair ups where she experience d itching. From 2017 to 2018 she used vaginal estrogen cream again with no improvemen t. In 2021 visual exam looked like lichen sclerosus but biopsy in 2021 showed chronic vulvitis with no fungal organisms. She used clobetasol for a period of months but didn't notice any improvemen t. Has not been able to be sexually active with partner in many years. Discussed using vaginal lubricants . Consider oral estrogen supplement ation at follow up. Health Concerns Section Related Observation LastModified by Organization Detai ls LastModified Time None Recorded Concern Status LastModified by Organization Details LastModified Time None Recorded Advance Directives Directive N: Payers Encounter Date Sequence Insurance Name Policy Number Policy Braga Covered Member ID Braga Member ID Guarantor Name 01/05/2019 1 [facility] (MEDICARE REPLACEMENT/A DVANTAGE - HMO) [id number] [facility] [id number] [facility] 04/06/2019 1 [facility] (MEDICARE REPLACEMENT/A DVANTAGE - HMO) [id number] Fannie Miguel Angel 07/24/2021 1 [facility] (MEDICARE REPLACEMENT/A DVANTAGE - HMO) [id number] [id number] Fannie Hayes 08/24/2021 1 [facility] (MEDICARE REPLACEMENT/A DVANTAGE - HMO) [id number] Fannie Michelle [id number] Fannie Michelle 02/26/2024 1 [facility] (MEDICARE REPLACEMENT/A DVANTAGE - HMO) [id number] Fannie Michelle [id number] Fannie Michelle Notes Date Note Type Note Provider Name and Address Organization Details Recorded Time 01/05/2019 text/html Vaginal/Vulvar ProblemReported bypatient.Location:[facility]; vagina Onset/Timing:started: (years ago) Quality:itching; burning; painful; swelling Severity:moderate; worsening Context:history of vaginal atrophy; lichen sclerosus Alleviating Factors:soaking; hydrocortisone cream Aggravating Factors:burning with urination Associated Symptoms:no vulvar lesions; no pelvic pain; no dyruria; no fever; no abdominal pain;vaginal itching;vaginal irritation;vaginal pain;vulvar itching/irritation;vu lvar swelling/erythema;vul tobi pain 73yo F presents for evaluation of vaginal irritation and itchiness. She states she was diagnosed with lichen sclerosus a few years ago and was given clobetasol steroid ointment for treatment. She also uses Premarin for atrophic vaginitis. She has been using both creams for years. She reports the vaginal irritation has recently gotten worse and has extended up her back. She is very uncomfortable and cannot stop scratching. JELLY WHITTINGTON Attn: [address] [place], [address], [place] [facility] 01/05/2019 19:31:54 04/06/2019 text/html Vaginal/Vulvar ProblemReported bypatient.Location:[facility]; vagina Onset/Timing:started: (years ago) Duration:present for >1 month; persistent Quality:itching; burning; painful; swelling Severity:moderate; improving Context:postmenopausa l; history of vaginal atrophy; lichen sclerosus, candidiasis, urinary incontinence Alleviating Factors:OTC antifungal medication Aggravating Factors:burning with urination Associated Symptoms:no vaginal itching; no vaginal irritation; no vaginal pain; no vulvar itching/irritation; no vulvar pain; no vulvar lesions; no pelvic pain; no dyruria; no fever; no abdominal pain;vulvar swelling/erythema 74yo F presents for follow up on vaginal irritation and itchiness. She was diagnosed with lichen sclerosus a few years ago and was given clobetasol steroid ointment for treatment. She was also using Premarin for atrophic vaginitis. She was using both of these products for years. She was seen about 3 months ago and diagnosed with candidal rash and advised to discontinue all creams/ointments and start using nystatin. She reports using twice daily and states vaginal irritation is significantly improved, best it has been in years. She also states pruritis has nearly gone away. JELLY WHITTINGTON Attn: [address] [place], [address], [facility] 04/06/2019 12:58:22 07/24/2021 text/html Fannie is a 76yo with a hx of lichen sclerosus presenting to discuss medication management. She was last seen in 2019. Pt currently using topical Clobetasol and Nystatin daily. Pt prescribed both medications in 2019 for tx of lichen sclerosis. Pt notes vaginal pruritis and burning and dryness. Pt states these symptoms never went away and have remained constant since 2019. Pt denies vaginal bleeding, discharge or abdominal pain. JELLY WHITTINGTON Attn: [address] [place], [address], [facility] 08/01/2021 14:06:47 08/24/2021 text/html 76 y/o female presents today for follow up for her chronic vulvar irritation for years. Her pruritis has improved since her last visit on 07/24/21, but still present. She has discontinued the clobetasol which she had been using regularly for over a year, and has been just using the Premarin and clotrimazole cream. She endorses constant discomfort described as steel wool between my legs, but denies any pain. Previously noticed burning sensation as well but this has resolved. Denies discharge, abnormal bleeding, pelvic pain, lesions. JELLY WHITTINGTON Attn: [address] [place], [address], [facility] 08/31/2021 15:18:21 02/26/2024 text/html Fannie is a 79 y ear old female with history of possible lichen sclerosus who presents to the clinic for vaginal itchiness that started a week ago. Has been using desitin diaper rash. This has helped and she only has mild symptoms currently. She has a long stating history of pelvic irritation and dyspareunia over the past 10 to 15 years. She was initially managed as genitourinary symptoms of menopause with estrogen cream in 2014. She did not note any improvement. Over the years she has had flair ups where she experienced itching. From 2017 to 2018 she used vaginal estrogen cream again with no improvement. In 2021 visual exam looked like lichen sclerosus but biopsy in 2021 showed chronic vulvitis with no fungal organisms. She used clobetasol for a period of months but didn't notice any improvement. No vaginal discharge. No dysuria, urgency. Katie Venegas MD Attn: [address] [place], [address], [facility] 03/22/2024 11:25:59 OBGyn Episode Ob Episode Information Episode Created Date Number of Fetuses Patient Bloodtype Patient rh Status Prepregnancy Weight lbs Domestic Partner Domestic Partner Phone Father Name Diversity Manager Status 01/06/20 19 1 CLOSED Fetus Data First Name Last Name Admitted to NICU Weight (g) Sex Living Outcome Pediatric Complications Fetus ID Race Codes Race Delivery Type 3742.13 4 M Full Term [id number] Vaginal Only Rei Calculation Initial Rei Date Initial Exam Date Initial Exam Provider Initial Ultrasound Date Last Menstrual Period Date Ultra Sound Weeks Gestation 0 Eighteen To Twenty Week Rei Update Ultra Sound Date Fundal Height At Umbil Quickening Date Ultra Sound Latest Weeks Gestation Final Rei Confirmed By Final Rei Confirmed Date Final Rei Date Ultra Sound Latest Days Gestation 0 0 Menstrual History Last Menstrual Date Menses Monthly On Bcp Conception Prior Menses Frequency Hcg Plus Date Menarche Onset Age Delivery Information Delivery Date Delivery Type Labor Anesthesia Weeks Gestation Incision Type Labor Labor Length Hrs Delivered By Post Complications Tubal Sterilization Discharge Date Comments 0 Discharge Information Feeding Method Contraceptive Method Maternal HG B and HCT Levels Ob Episode Information Episode Created Date Number of Fetuses Patient Bloodtype Patient rh Status Prepregnancy Weight lbs Domestic Partner Domestic Partner Phone Father Name Diversity Manager Status 01/06/20 19 1 CLOSED Fetus Data First Name Last Name Admitted to NICU Weight (g) Sex Living Outcome Pediatric Complications Fetus ID Race Codes Race Delivery Type 3515.33 8 F Full Term [id number] Vaginal Only Rei Calculation Initial Rei Date Initial Exam Date Initial Exam Provider Initial Ultrasound Date Last Menstrual Period Date Ultra Sound Weeks Gestation 0 Eighteen To Twenty Week Rei Update Ultra Sound Date Fundal Height At Umbil Quickening Date Ultra Sound Latest Weeks Gestation Final Rei Confirmed By Final Rei Confirmed Date Final Rei Date Ultra Sound Latest Days Gestation 0 0 Menstrual History Last Menstrual Date Menses Monthly On Bcp Conception Prior Menses Frequency Hcg Plus Date Menarche Onset Age Delivery Information Delivery Date Delivery Type Labor Anesthesia Weeks Gestation Incision Type Labor Labor Length Hrs Delivered By Post Complications Tubal Sterilization Discharge Date Comments 6 Discharge Information Feeding Method Contraceptive Method Maternal HG B and HCT Levels
== END 2024-05-21 17:00 | disposition home or self-care (01) ==
PROVIDERS: PCP Internal Medicine; Visit Provider Internal Medicine
DX: R05.9 Cough, unspecified (principal)
CPT/HCPCS: 71046

== ENCOUNTER 2024-10-14 14:28 | Emergency (ER) | payer MEDICARE, SELFPAY ==
[2024-10-14] VITALS (10 sets, daily range): BP systolic 100–157; BP diastolic 73–84; PULSE 56–80; RESP 13–23; TEMP 36.8; O2SAT 95–100
--- NOTE | ~2024-10-14 | XR_ITS ---
HISTORY: pain COMPARISON: none TECHNIQUE: 2 views of the left scapula FINDINGS: No acute or subacute fracture. Soft tissues are unremarkable without radiopaque foreign body or significant calcification. Age-appropriate mineralization. IMPRESSION: No acute fracture Reviewed, dictated and finalized at location A. IMPRESSION: No acute fracture
--- NOTE | ~2024-10-14 | XR_ITS ---
EXAM/PROCEDURE: XR chest 2V - 10/14/2024 15:32 CDT HISTORY: 79 years old Female with cp TECHNIQUE: Two view(s) of the chest. COMPARISON: None available. FINDINGS: LUNGS/ PLEURA: Bibasilar airspace opacities can represent atelectasis, scarring versus possible pneum onia. No appreciable pneumothorax or large pleural effusion. HEART/ MEDIASTINUM: Heart appears normal in size. BONES: No acute osseous abnormality. OTHER: Visualized upper abdomen is unremarkable. Tortuous aorta. IMPRESSION: Bibasilar airspace opacities can represent atelectasis, scarring versus possible pneumonia in appropr iate clinical settings. Clinical correlation is recommended. Short-term follow-up chest radiograph is recommended after appropriate clinical therapy. Reviewed, dictated and finalized at location A. IMPRESSION: Bibasilar airspace opacities can represent atelectasis, scarring versus possibl e pneumonia in appropriate clinical settings. Clinical correlation is recommend ed. Short-term follow-up chest radiograph is recommended after appropriate clin ical therapy.
--- NOTE | ~2024-10-14 | XR_ITS ---
HISTORY: shoulder pain COMPARISON: None TECHNIQUE: 4 views of the left shoulder were performed FINDINGS: No acute fracture. The glenohumeral joint space is maintained The acromioclavicular joint space is widened with osteophyte formation and upsloping of the distal cl avicle. The visualized portion of the adjacent left lung is clear. The humeral head is well seated within the glenoid fossa. IMPRESSION: Degenerative disease, without acute fracture or anterior dislocation. Reviewed, dictated and finalized at location A.
--- NOTE | 2024-10-14 14:29 | ECG_ITS ---
Test Date: 2024-10-14 14:33:14 Measurements Intervals Altha Rate: 62 P: 86 NE: 164 QRS: -34 QRSD: 82 T: 54 QT: 412 QTc: 421 Interpretive Statements SINUS RHYTHM LEFT AXIS DEVIATION DELAYED PRECORDIAL R/S TRANSITION BORDERLINE T WAVE ABNORMALITY- ANTERIOR LEADS BASELINE ARTIFACT- I, II, III, AVR, AVL, AVF BORDERLINE ECG No previous ECG available for comparison Electronically Signed On 10-14-2024 15:30:19 CDT by Forrest Sharp D.O.
[2024-10-14 14:45] LABS: Basophils Percent Auto 0.5 % (0.2-1.2); Eosinophils Percent Auto 0.5 % (0-4.4); Hematocrit 40.2 % (37.0-47.0); Hemoglobin 13.2 g/dL (12.0-15.0); Immature Granulocyte Absolute 0.03 K/mm3 (0.00-0.031); Immature Granulocyte Percent A 0.4 % (0-0.5); Lymphocytes Absolute Auto 2.61 K/mm3 (0.9-3.2); Lymphocytes Percent Auto 35.4 % (18.3-44.2); Mean Corpuscular HGB Conc 32.8 g/dl (32-36); Mean Corpuscular Hemoglobin 28.8 pg (26-34); Mean Corpuscular Volume 87.8 fl (80-100); Monocytes Absolute Auto 0.8 K/mm3 (0.1-0.6); Neutrophils Absolute Auto 3.8 K/mm3 (1.3-6.7); Neutrophils Percent Auto 52.2 % (45.5-73.1); Platelet Count Result 219 k/mm3 (150-375); Red Blood Count 4.58 M/mm3 (4.2-5.4); Red Cell Distribution Width 13.1 % (11.5-14.5); White Blood Count 7.4 K/mm3 (4.5-10.0)
[2024-10-14 14:56] LABS: Partial Thromboplastin Time 24.9 Seconds (22.3-36.8); Prothrombin Time 13.5 Seconds (11.1-14.7)
[2024-10-14 14:57] LABS: Alanine Aminotransferase 20 U/L (6-35); Albumin Level 4.3 g/dL (3.5-5.1); Alkaline Phosphatase 59 U/L (38-126); Anion Gap 9 mmol/L (4-12); Aspartate Amino Transferase 21 U/L (14-36); Bilirubin,Total 0.3 mg/dL (0.2-1.3); Blood Urea Nitrogen 18 mg/dL (7-17); Calcium 9.1 mg/dL (8.4-10.2); Carbon Dioxide 26 mmol/L (22-30); Chloride 107 mmol/L (98-107); Estimated CRCL calculation 53 ml/min; Estimated Glomerular Filt Rate > 60; Glucose 104 mg/dL (65-110); Lipase 37 U/L (23-300); Potassium 3.8 mmol/L (3.4-5.0); Sodium 142 mmol/L (137-145); Total Protein 7.2 g/dL (6.3-8.2)
[2024-10-14 15:09] LABS: Troponin I < 0.012 ng/mL (0.000-0.034)
--- NOTE | 2024-10-14 17:09 | ED_ITS ---
HPI - Chest Pain General Chief Complaint: Chest Pain Stated Complaint: chest pain Time Seen by Provider: 10/14/24 16:12 Source: patient and family Mode of arrival: ambulatory Limitations: no limitations History of Present Illness HPI narrative: Patient presents with left shoulder pain that has now radiated into her chest. Denies any paresthesias. Denies any particularly repetitive movements. States she has had chest pain before although that was a while ago and occurred under her left breast. He has occasionally been applying heating pad. Denies any rash. Intermittently been experiencing discomfort. Occasionally using Tylenol ibuprofen and applies lidocaine patch. She was diagnosed with COVID 3 weeks ago but has been having a cough for the past several months. Denies any diaphoresis. She went to her primary care physician (Oliver) Friday and was prescribed antibiotics and a Medrol Dosepak. No nausea or vomiting but she did experience some vomiting and exhaustion after eating last week. No edema. The pain had been intermittent but has since become constant. She describes it as a pressure, like wearing a bra that is too tight. Cardiac risk factors HTN: No HLD: No DM: No Obese: No Smoker: No Personal history OK/TIA/CVA: No Fam Hx OK in first degree relative <65yo: Not confirmed (brother sudden at age 62 though reportedly a very different lifestyle than her own) Related Data Allergies Allergy/AdvReac Type Severity Reaction Status Date / Time sulfamethoxazole (From AdvReac Intermediate Itching Verified 10/14/24 17:37 Bactrim) trimethoprim (From Bactrim) AdvReac Intermediate Itching Verified 10/14/24 17:37 Penicillins AdvReac Mild Unknown Verified 10/14/24 17:37 PMFSH Family History Family History Sibling , 62 Sudden Social History Social History Smoking status: Never smoker Living arrangements: with family Exam 2 Narrative: GENERAL: Well-appearing, well-nourished, and in no acute distress. HEAD: Normocephalic, atraumatic. EYES: Non injected, non icteric ENT: Nares clear, no rhinorrhea or epistaxis. Gross auditory acuity intact. NECK: Supple. No meningismus. CHEST: Speaking in full sentences. No respiratory distress. HEART: Regular rate and rhythm. . ABDOMEN: Soft, nondistended. No rigidity or guarding. Not peritoneal EXTREMITIES: Normal range of motion. No lower extremity edema. Able to perform full ROM of L shoulder. No TTP of L shoulder girdle. No resistance/limitations with passive ROM. SKIN: Warm, dry, no rash. In particular, no rash/vescicular lesions over the chest/back/shoulder. NEURO: No focal deficits. Alert and oriented. Answering questions. Following commands. Normal speech without aphasia or dysarthria. Sensation intact throughout arm. PSYCH: Normal mood and affect. Course Vital Signs Vital signs: Vital Signs Temperature 98.2 F 10/14/24 14:34 Pulse Rate 80 10/14/24 14:34 Respiratory Rate 16 10/14/24 14:34 Blood Pressure 150/84 H 10/14/24 14:34 Pulse Oximetry 98 10/14/24 14:34 Temperature 98.2 F 10/14/24 14:34 Pulse Rate 56 L 10/14/24 18:45 Respiratory Rate 13 10/14/24 18:45 Blood Pressure 154/84 H 10/14/24 17:37 Pulse Oximetry 96 10/14/24 18:45 Oxygen Delivery Room Air 10/14/24 16:25 MDM - Chest Pain MDM Narrative Medical decision making narrative: Patient presents with left shoulder pain that has radiated into her chest. In the emergency department she is afebrile with vital signs notable for mild hypertension. HEART SCORE History 2 highly suspicious 1 moderately suspicious 0 slightly suspicious History score [address] depression/elevation not due to LBBB, LVH, or digoxin [address] depression but LBBB, LVH, nonspecific repolarization changes 0 normal ECG score 0 Age 2 >/= 65 1 45-64 0 <45 Age score 2 Risk factors (HTN, hypercholesterolemia, DM, obesity with BMI >30, current smoker or cessation </=3mo), positive fam hx with parent or sibling with CVD before age 65, atherosclerotic disease (prior OK, PCI/CABG, CVA/TIA, or peripheral arterial disease) 2 >/= 3 risk factors or history of atherosclerotic dz 1 - 1-2 risk factors 0 no known risk factors Risk factor score 0 - possibly 1 (fam hx not confirmed - brother suddenly, unknown why though by report different lifestyle) Initial Troponin 2 >3 times normal limit 1 1-3 times normal limit 0 less than or equal to normal limit Troponin score 0 Total HEART Score 2 - 3 Questionable chest x-ray. No leukocytosis but has had a chronic cough. Regardless though, currently on antibiotic therapy as well as steroids as per PCP. Other imaging negative for acute process. BNP mildly elevated however not to a degree to suggest acute heart failure based on the reference range of the assay for patient's age. Repeat troponin normal. Dimer normal. Will not proceed with CT imaging at this time. Stable for discharge. Differential Diagnosis Differential diagnosis: Likely stable angina, unstable angina pectoris, atypical chest pain, st elevation myocardial infarction, costochondritis, chest pain and other (zoster; shoulder tendinopathy/rotator cuff tear; strain/sprain; adhesive capsulitis) Lab Data Attestation: I reviewed the patient's lab results. 10/14/24 14:38 10/14/24 14:38 Labs: Lab Results 10/14/24 10/14/24 10/14/24 Range/Units 14:38 17:49 17:49 WBC 7.4 (4.5-10.0) K/mm3 RBC 4.58 (4.2-5.4) M/mm3 Hgb 13.2 (12.0-15.0) g/dL Hct 40.2 (37.0-47.0) % MCV 87.8 (80-100) fl MCH 28.8 (26-34) pg MCHC 32.8 (32-36) g/dl RDW 13.1 (11.5-14.5) % Plt Count 219 (150-375) k/mm3 MPV 9.0 (7.4-10.4) fl Immature Gran % (Auto) 0.4 (0-0.5) % Neut % (Auto) 52.2 (45.5-73.1) % Lymph % (Auto) 35.4 (18.3-44.2) % [place] % (Auto) 11.0 H (2.6-8.5) % Eos % (Auto) 0.5 (0-4.4) % Baso % (Auto) 0.5 (0.2-1.2) % Lymph # (Auto) 2.61 (0.9-3.2) K/mm3 [place] # (Auto) 0.8 H (0.1-0.6) K/mm3 Eos # (Auto) 0.0 (0-0.3) K/mm3 Baso # (Auto) 0.0 (0.0-0.1) K/mm3 Abs Immat Gran (auto) 0.03 (0.00-0.031) K/mm3 Absolute Neuts (auto) 3.8 (1.3-6.7) K/mm3 Absolute Nucleated RBC 0.000 (0.0-0.012) K/mm3 Nucleated RBC % 0.0 (0.0-0.2) % PT 13.5 (11.1-14.7) Seconds INR 1.0 APTT 24.9 (22.3-36.8) Seconds D-Dimer 0.31 (<0.48) ug/mL Sodium 142 (137-145) mmol/L Potassium 3.8 (3.4-5.0) mmol/L Chloride 107 (98-107) mmol/L Carbon Dioxide 26 (22-30) mmol/L Anion Gap 9 (4-12) mmol/L BUN 18 H (7-17) mg/dL Creatinine 0.75 (0.7-1.0) mg/dL Estim Creat Clear Calc 53 ml/min Estimated GFR > 60 (59 - ) Glucose 104 (65-110) mg/dL Calcium 9.1 (8.4-10.2) mg/dL Magnesium 2.0 Cancelled (1.6-2.3) mg/dL Total Bilirubin 0.3 (0.2-1.3) mg/dL AST 21 (14-36) U/L ALT 20 (6-35) U/L Alkaline Phosphatase 59 (38-126) U/L Troponin I < 0.012 < 0.012 (0.000-0.034) ng/mL NT-Pro-B Natriuret Pep 166 H (19.9-100) pg/mL Total Protein 7.2 (6.3-8.2) g/dL Albumin 4.3 (3.5-5.1) g/dL Lipase 37 (23-300) U/L // Range/Units 17:49 WBC (4.5-10.0) K/mm3 RBC (4.2-5.4) M/mm3 Hgb (12.0-15.0) g/dL Hct (37.0-47.0) % MCV (80-100) fl MCH (26-34) pg MCHC (32-36) g/dl RDW (11.5-14.5) % Plt Count (150-375) k/mm3 MPV (7.4-10.4) fl Immature Gran % (Auto) (0-0.5) % Neut % (Auto) (45.5-73.1) % Lymph % (Auto) (18.3-44.2) % [place] % (Auto) (2.6-8.5) % Eos % (Auto) (0-4.4) % Baso % (Auto) (0.2-1.2) % Lymph # (Auto) (0.9-3.2) K/mm3 [place] # (Auto) (0.1-0.6) K/mm3 Eos # (Auto) (0-0.3) K/mm3 Baso # (Auto) (0.0-0.1) K/mm3 Abs Immat Gran (auto) (0.00-0.031) K/mm3 Absolute Neuts (auto) (1.3-6.7) K/mm3 Absolute Nucleated RBC (0.0-0.012) K/mm3 Nucleated RBC % (0.0-0.2) % PT (11.1-14.7) Seconds INR APTT (22.3-36.8) Seconds D-Dimer (<0.48) ug/mL Sodium (137-145) mmol/L Potassium (3.4-5.0) mmol/L Chloride (98-107) mmol/L Carbon Dioxide (22-30) mmol/L Anion Gap (4-12) mmol/L BUN (7-17) mg/dL Creatinine (0.7-1.0) mg/dL Estim Creat Clear Calc ml/min Estimated GFR (59 - ) Glucose (65-110) mg/dL Calcium (8.4-10.2) mg/dL Magnesium (1.6-2.3) mg/dL Total Bilirubin (0.2-1.3) mg/dL AST (14-36) U/L ALT (6-35) U/L Alkaline Phosphatase (38-126) U/L Troponin I (0.000-0.034) ng/mL NT-Pro-B Natriuret Pep Cancelled (19.9-100) pg/mL Total Protein (6.3-8.2) g/dL Albumin (3.5-5.1) g/dL Lipase (23-300) U/L Imaging Data Radiologist's impression: IMPRESSION: Bibasilar airspace opacities can represent atelectasis, scarring versus possible pneumonia in appropriate clinical settings. Clinical correlation is recommended. Short-term follow-up chest radiograph is recommended after appropriate clinical therapy. IMPRESSION: Degenerative disease, without acute fracture or anterior dislocation. IMPRESSION: No acute fracture ECG Data EKG #1: Attestation: I personally reviewed and interpreted this ECG as follows: ECG completion date: 10/14/24 ECG completion time: 14:33 Interpretation: Normal sinus rhythm at a rate of 62 beats per minute. W[place] interval 164. QRS 82. QT/QTC 412/418. Good R-wave progression across the precordial leads. Left axis deviation given QRS positive in 1 and negative in 3 and AVF and trending towards negative in 2. No T-wave inversions. EKG #2: Attestation: I personally reviewed and interpreted this ECG as follows: ECG completion date: 10/14/24 ECG completion time: 17:48 Interpretation: Sinus bradycardia at a rate of 56 beats per minute. [place] interval 170. QRS 78. QT/QTC 429/419. Good R-wave progression across the precordial leads. Discharge Plan Discharge Clinical Impression: Atypical chest pain, Shoulder blade pain, DJD of left shoulder Patient Disposition: Home Condition: Stable Instructions: Antibiotic Form, Chest Pain (DC), Shoulder Pain (ED) Additional Instructions: No clear cause of your symptoms although questionable pneumonia versus atelectasis on your chest x-ray. You are already on therapy and being treated for this by her primary care physician. Follow-up with them. Return to the emergency department with any new or worsening symptoms. Acetaminophen/Tylenol (maximum 4000 mg per day) is safe to take with NSAIDs (ibuprofen/Motrin) for pain relief. It is not felt that your chest pain is cardiac in nature based on the reassuring EKGs and cardiac enzymes (x2). You are otherwise low but not NO risk so recommend outpatient follow-up with a boiler shop supervisor. Either your primary care physician can help arrange this or the name of a doctor is listed below. Patient Language: [place] Prescriptions: New acetaminophen 500 mg capsule 1,000 mg PO Q6H PRN (Reason: pain) Qty: 30 0RF ibuprofen 600 mg tablet 600 mg PO TID PRN (Reason: pain) Qty: 30 0RF Follow-up/Referrals: Colby Gardner MD [Physician] - Boyd,Juanpablo Villasenor MD [Primary Care Provider] - Stand Alone Forms: Work/School Release IP Time of Disposition: 18:57
--- NOTE | 2024-10-14 17:32 | ECG_ITS ---
Test Date: 2024-10-14 17:48:37 Measurements Intervals [place] Rate: 56 P: 45 NM: 170 QRS: -29 QRSD: 78 T: 25 QT: 429 QTc: 414 Interpretive Statements SINUS BRADYCARDIA DELAYED PRECORDIAL R/S TRANSITION BORDERLINE T WAVE ABNORMALITY- ANTERIOR LEADS BASELINE ARTIFACT- I, III, AVL, AVF BORDERLINE ECG Compared to ECG 10/14/2024 14:33:14 Sinus rhythm no longer present Electronically Signed On 10-14-2024 20:24:08 CDT by Forrest Sharp D.O.
[2024-10-14] MEDS: HYDROcodone/acetaminophen (*CRX) 5-325 MG TABLET 1 TAB PO (17:39)
[2024-10-14] MEDS: BENZONATATE 100 MG CAPSULE PO (17:42)
[2024-10-14 18:10] LABS: D Dimer 0.31 ug/mL (<0.48)
[2024-10-14 18:16] LABS: NT Pro B Type Natriuretic Pept 166 pg/mL (19.9-100); Troponin I < 0.012 ng/mL (0.000-0.034)
== END 2024-10-14 19:18 | disposition home or self-care (01) ==
PROVIDERS: Emergency Medicine; Emergency Provider Student in an Organized Health Care Education/Training Program; PCP Internal Medicine
DX: R07.89 Other chest pain (principal); M19.012 Primary osteoarthritis, left shoulder; Z86.16 Personal history of COVID-19; R00.1 Bradycardia, unspecified; R94.31 Abnormal electrocardiogram [ECG] [EKG]
CPT/HCPCS: 36415; 71046; 73010; 73030; 80053; 83690; 83735; 83880; 84484; 85025; 85380; 85610; 85730; 93005; 99284; A9270